=== PATIENT | male | born 1945 | race Hispanic/Latino ===

== ENCOUNTER 2020-12-04 13:12 | Inpatient (IN) | payer MEDICARE, OTHER ==
[2020-12-04] VITALS (10 sets, daily range): BP systolic 86–122; BP diastolic 37–105
[~2020-12-04] VITALS: Ht 167.6 cm; Wt 69.4 kg
[2020-12-04] MEDS ORDERED: 0.9%NACL 1000ML 1,000 ML IV ONE (13:31)
[2020-12-04 13:51] LABS: BASOPHILS % (AUTO) 0.7 % (0.0-5.0); EOSINOPHILS % (AUTO) 1.6 % (0.0-8.0); HEMATOCRIT 38.9 % (42-54); LYMPHOCYTES % (AUTO) 13.6 % (21.0-51.0); MEAN CORPUSCULAR HEMOGLOBIN 30.5 pg (27.0-33.0); MEAN CORPUSCULAR HGB CONC 33.7 g/dL (32.0-36.0); MEAN CORPUSCULAR VOLUME 90.7 fL (79-99); MONOCYTES % (AUTO) 7.7 % (3.0-13.0); NEUTROPHILS % (AUTO) 75.6 % (40.0-77.0); PLATELET COUNT (AUTO) 440 K/uL (130-400); RED BLOOD CELL COUNT(AUTO) 4.29 MIL/uL (4.50-6.20); RED CELL DISTRIBUTION WIDTH 14.1 % (11.0-15.5); WHITE BLOOD COUNT (AUTO) 12.1 K/uL (4.8-10.8)
[2020-12-04 13:59] LABS: AMMONIA < 3 umol/L (11-32)
[2020-12-04 14:09] LABS: INR 1.24 (0.85-1.15); PROTHROMBIN TIME 13.3 SEC (9.6-11.6)
[2020-12-04 14:10] LABS: PARTIAL THROMBOPLASTIN TIME 28.3 SEC (26.3-35.5)
[2020-12-04 14:13] LABS: APPEARANCE,URINE Cloudy (CLEAR); BILIRUBIN,URINE Negative (NEGATIVE); COLOR,URINE Yellow (YELLOW); GLUCOSE, URINE (UA) Negative (NEGATIVE); KETONES,URINE Negative (NEGATIVE); LEUKOCYTE ESTERASE ,URINE Trace (NEGATIVE); NITRATE,URINE Negative (NEGATIVE); OCCULT BLOOD,URINE Moderate (NEGATIVE); PROTEIN,URINE Negative (NEGATIVE); UROBILINOGEN,URINE 0.2 mg/dL (0.2-1.0)
[2020-12-04] MEDS ORDERED: DIAZEPAM 5 MG/ML 2 ML SYG ONE (14:16)
[2020-12-04] MEDS ORDERED: LACTATED RINGERS 1000ML 1,000 ML IV ONE (14:16)
[2020-12-04 14:22] LABS: ALANINE AMINOTRANSFERASE 81 U/L (12-78); ALBUMIN 2.2 g/dL (3.5-5.0); ASPARTATE AMINOTRANSFERASE 138 U/L (10-37); CARBON DIOXIDE 21 mmol/L (21-32); CHLORIDE 106 mmol/L (101-111); CREATININE 1.6 mg/dL (0.5-1.5); GLOMERULAR FILTR. RATE CALC 45 mL/min (>60); GLUCOSE,RANDOM 129 mg/dL (70-105); LIPASE 480 U/L (114-286); POTASSIUM 3.3 mmol/L (3.5-5.1); SODIUM SERUM 142 mmol/L (136-145); TOTAL PROTEIN, SERUM 6.7 g/dL (6.0-8.3); UREA NITROGEN, BLOOD 58 mg/dL (7-18)
[2020-12-04 14:25] LABS: CREATINE KINASE, TOTAL 2346 U/L (21-232)
[2020-12-04 14:28] LABS: B-TYPE NATRIURETIC PEPTIDE 785 pg/mL (0-100)
[2020-12-04 14:30] LABS: BACTERIA,URINE Few /HPF (None Seen); MUCUS,URINE Few LPF (None Seen); SQUAMOUS EPITHELIAL CELL,UR Many /HPF (0-2)
[2020-12-04 14:31] LABS: TRANSITIONAL EPI CELLS,URINE Few /HPF (None Seen)
[2020-12-04] MEDS ORDERED: ASPIRIN 81MG CHEW TAB ONE (14:51)
[2020-12-04 14:53] LABS: AMPHET/METH SCREEN,URINE NEGATIVE (NEGATIVE); BARBITURATE SCREEN, URINE NEGATIVE (NEGATIVE); BENZODIAZEPINES SCREEN,URINE NEGATIVE (NEGATIVE); CANNABINOID SCREEN,URINE NEGATIVE (NEGATIVE); COCAINE SCREEN,URINE NEGATIVE (NEGATIVE); OPIATE SCREEN,URINE NEGATIVE (NEGATIVE); PHENCYCLIDINE SCREEN,URINE NEGATIVE (NEGATIVE)
[2020-12-04 15:01] LABS: ACETAMINOPHEN < 1 mcg/mL (10-29); SALICYLATE < 2.8 mg/dL (2.8-20.0)
[2020-12-04] MEDS ORDERED: M.V.I. IV [ADULT] 10 ML, THIAMINE HCL 100 MG, FOLIC ACID 1 MG in 0.9%NACL 1000ML 1,000 ML IV SCH (15:30)
[2020-12-04] MEDS: 0.9%NACL 1000ML 1,000 ML IV SCH (16:30)
[2020-12-04] MEDS ORDERED: ONDANSETRON 4MG INJ IVP PRN (16:30)
[2020-12-04] MEDS ORDERED: VANCOMYCIN PROTOCOL PER PHARMACY IV SCH (16:30)
[2020-12-04] MEDS ORDERED: DEXTROSE 50%-WATER 50 ML DISP.SYRIN IV PRN (16:45)
[2020-12-04] MEDS ORDERED: GLUCAGON 1MG KIT 1 MG ML IM PRN (16:45)
[2020-12-04] MEDS ORDERED: LIDOCAINE HCL-MPF 1% 2ML VIAL IV PRN ×2 (16:45)
[2020-12-04] MEDS ORDERED: NOREPINEPHRIN 4MG/NS 250ML 250 ML IV SCH (17:15)
[2020-12-04] MEDS ORDERED: ZOSYN 3.375GM+NS 50ML 50 ML IV ONE (17:40)
[2020-12-04 18:17] LABS: CRP QUANTITATIVE 137.9 mg/L (0.00-9.0)
[2020-12-04] MEDS ORDERED: HEPARIN 25,000 UNITS/250ML D5W 250 ML IV ONE (20:35)
[2020-12-04] MEDS: PANTOPRAZOLE 40 MG TAB DR PO SCH (21:00)
[2020-12-04] MEDS: ZOSYN 3.375GM+NS 50ML 50 ML IV SCH (21:00)
[2020-12-04] MEDS: VANCOMYCIN 1G/250ML KIT 250 ML IV SCH (22:20)
[2020-12-05] VITALS (29 sets, daily range): BP systolic 87–150; BP diastolic 45–95
[2020-12-05] MEDS: ZOSYN 3.375GM+NS 50ML 50 ML IV SCH ×4 (00:23→23:46)
[2020-12-05] MEDS: 0.9%NACL 1000ML 1,000 ML IV SCH ×3 (03:18→21:51)
[2020-12-05 03:45] LABS: HEMATOCRIT 34.2 % (42-54); MEAN CORPUSCULAR HEMOGLOBIN 29.6 pg (27.0-33.0); MEAN CORPUSCULAR HGB CONC 32.7 g/dL (32.0-36.0); MEAN CORPUSCULAR VOLUME 90.2 fL (79-99); RED BLOOD CELL COUNT(AUTO) 3.79 MIL/uL (4.50-6.20); RED CELL DISTRIBUTION WIDTH 14.2 % (11.0-15.5); WHITE BLOOD COUNT (AUTO) 9.2 K/uL (4.8-10.8)
[2020-12-05 04:00] LABS: INR 1.37 (0.85-1.15); PROTHROMBIN TIME 14.5 SEC (9.6-11.6)
[2020-12-05 04:01] LABS: PARTIAL THROMBOPLASTIN TIME 87.1 SEC (26.3-35.5)
[2020-12-05 04:31] LABS: ALBUMIN 1.7 g/dL (3.5-5.0); BILIRUBIN,DIRECT 0.6 mg/dL (0.0-0.3); BILIRUBIN,TOTAL 1.7 mg/dL (0.2-1.0); CREATININE 1.1 mg/dL (0.5-1.5); MAGNESIUM 2.6 mg/dL (1.80-2.40); TOTAL PROTEIN, SERUM 5.4 g/dL (6.0-8.3)
[2020-12-05 04:35] LABS: POTASSIUM 2.7 mmol/L (3.5-5.1)
[2020-12-05] MEDS: POTASSIUM CHLORIDE 10MEQ/100ML 100 ML IV PRN ×2 (04:40→07:07)
[2020-12-05] MEDS: POTASSIUM CHLORIDE 20MEQ/100ML 100 ML IV PRN (05:47)
[2020-12-05] MEDS: PANTOPRAZOLE 40 MG TAB DR PO SCH (08:49)
[2020-12-05 09:45] LABS: INR 1.38 (0.85-1.15); PROTHROMBIN TIME 14.6 SEC (9.6-11.6)
[2020-12-05 13:55] LABS: INR 1.4 (0.85-1.15); PROTHROMBIN TIME 14.8 SEC (9.6-11.6)
[2020-12-05 13:56] LABS: PARTIAL THROMBOPLASTIN TIME 71.9 SEC (26.3-35.5)
[2020-12-05] MEDS ORDERED: AMIODARONE 900MG VIAL 900 MG in DEXTROSE 5%-WATER 500 ML IV SCH (14:45)
[2020-12-05] MEDS ORDERED: AMIODARONE 900MG VIAL 150 MG in DEXTROSE 5%-WATER 100 ML IV SCH (15:00)
[2020-12-05 15:30] LABS: CREATININE 1.1 mg/dL (0.5-1.5); POTASSIUM 3.2 mmol/L (3.5-5.1)
[2020-12-05] MEDS: VANCOMYCIN 1G/250ML KIT 250 ML IV SCH (17:08)
[2020-12-05 17:31] LABS: ABG BASE EXCESS -6.2 mmol/L (-2.0-3.0); ABG HCO3 14.7 mmol/L (21.0-28.0); ABG OXYGEN SATURATION 97.4 % (95.0-99.0); ABG PCO2 20 mmHg (35-48)
[2020-12-05] MEDS ORDERED: ALBUMIN (HUMAN) 25% 50 ML IV SCH (17:45)
[2020-12-05] MEDS ORDERED: PHARMACY COMMUNICATION MISC SCH (18:30)
[2020-12-05 19:58] LABS: INR 1.39 (0.85-1.15); PROTHROMBIN TIME 14.7 SEC (9.6-11.6)
[2020-12-05 19:59] LABS: PARTIAL THROMBOPLASTIN TIME 42.9 SEC (26.3-35.5)
[2020-12-05 20:21] LABS: CREATININE 1.1 mg/dL (0.5-1.5); POTASSIUM 3.3 mmol/L (3.5-5.1)
[2020-12-06] VITALS (42 sets, daily range): BP systolic 71–158; BP diastolic 31–93
[2020-12-06 03:53] LABS: HEMATOCRIT 35.8 % (42-54); MEAN CORPUSCULAR HEMOGLOBIN 30.7 pg (27.0-33.0); MEAN CORPUSCULAR HGB CONC 32.7 g/dL (32.0-36.0); RED BLOOD CELL COUNT(AUTO) 3.81 MIL/uL (4.50-6.20); RED CELL DISTRIBUTION WIDTH 14.7 % (11.0-15.5); WHITE BLOOD COUNT (AUTO) 10.4 K/uL (4.8-10.8)
[2020-12-06 04:05] LABS: INR 1.44 (0.85-1.15); PROTHROMBIN TIME 15.2 SEC (9.6-11.6)
[2020-12-06 04:07] LABS: CREATININE 1.2 mg/dL (0.5-1.5); MAGNESIUM 1.5 mg/dL (1.80-2.40); PARTIAL THROMBOPLASTIN TIME 40.7 SEC (26.3-35.5); POTASSIUM 3.3 mmol/L (3.5-5.1)
[2020-12-06] MEDS: MAGNESIUM 2GM PREMIX 50ML 50 ML IV PRN (05:39)
[2020-12-06] MEDS: POTASSIUM CHLORIDE 20MEQ/100ML 100 ML IV PRN (05:40)
[2020-12-06] MEDS: 0.9%NACL 1000ML 1,000 ML IV SCH (07:35)
[2020-12-06] MEDS ORDERED: ALBUMIN (HUMAN) 25% 100 ML IV ONE (09:05)
[2020-12-06] MEDS: ZOSYN 3.375GM+NS 50ML 50 ML IV SCH ×2 (09:08→17:29)
[2020-12-06] MEDS: PANTOPRAZOLE 40 MG TAB DR PO SCH (09:08)
[2020-12-06] MEDS ORDERED: LISI1TAB53 PO (09:34)
[2020-12-06] MEDS ORDERED: LORA10TA7 PO (09:34)
[2020-12-06] MEDS ORDERED: MEGE400O5 PO (09:34)
[2020-12-06] MEDS ORDERED: CLOT30SO2 TP (09:34)
[2020-12-06] MEDS ORDERED: LEVO500T90 PO (09:34)
[2020-12-06] MEDS ORDERED: ERGO500093 PO (09:34)
[2020-12-06 09:38] LABS: HEMATOCRIT 37.2 % (42-54); MEAN CORPUSCULAR HEMOGLOBIN 29.9 pg (27.0-33.0); MEAN CORPUSCULAR HGB CONC 31.7 g/dL (32.0-36.0); MEAN CORPUSCULAR VOLUME 94.2 fL (79-99); PLATELET COUNT (AUTO) 314 K/uL (130-400); RED BLOOD CELL COUNT(AUTO) 3.95 MIL/uL (4.50-6.20); RED CELL DISTRIBUTION WIDTH 14.6 % (11.0-15.5); WHITE BLOOD COUNT (AUTO) 12.1 K/uL (4.8-10.8)
[2020-12-06 09:47] LABS: INR 1.48 (0.85-1.15); PROTHROMBIN TIME 15.6 SEC (9.6-11.6)
[2020-12-06 10:03] LABS: LYMPHOCYTES % (MANUAL) 18 % (22-44); MAN.DIFF COMMENT-IMPRESSION MANUAL DIFFERENTIAL; MONOCYTES % (MANUAL) 4 % (2-9); POTASSIUM 3.6 mmol/L (3.5-5.1); SEGMENTED NEUTROPHILS % 78 % (40-70)
[2020-12-06 10:04] LABS: CREATININE 1.3 mg/dL (0.5-1.5); PLATELET MORPHOLOGY COMMENT ADEQUATE
[2020-12-06] MEDS ORDERED: LORAZEPAM 2 MG/ML 1 ML VIAL ONE (12:28)
[2020-12-06] MEDS: METOPROLOL TARTRATE 25 MG TAB PO SCH ×3 (12:52→21:00)
[2020-12-06] MEDS ORDERED: LACTATED RINGERS 1000ML 1,000 ML IV SCH (15:45)
[2020-12-06 16:07] LABS: INR 1.74 (0.85-1.15)
[2020-12-06 16:08] LABS: PARTIAL THROMBOPLASTIN TIME 62.8 SEC (26.3-35.5)
[2020-12-06] MEDS ORDERED: FUROSEMIDE 40MG VIAL ONE (16:21)
[2020-12-06] MEDS ORDERED: FUROSEMIDE 20MG VIAL IV SCH (16:30)
[2020-12-06 16:39] LABS: ABG BASE EXCESS -14.8 mmol/L (-2.0-3.0); ABG HCO3 6.4 mmol/L (21.0-28.0); ABG OXYGEN SATURATION 99.1 % (95.0-99.0); ABG PCO2 < 15 mmHg (35-48)
[2020-12-06] MEDS ORDERED: SODIUM BICARB 50MEQ 50ML VIAL IV SCH ×2 (16:45→17:15)
[2020-12-06] MEDS: BALSAM PERU/CASTOR OIL 60 GM TUBE TP SCH (17:28)
[2020-12-06] MEDS: VANCOMYCIN 1G/250ML KIT 250 ML IV SCH (17:29)
[2020-12-06 17:41] LABS: CREATININE 1.5 mg/dL (0.5-1.5); MAGNESIUM 2.1 mg/dL (1.80-2.40); PHOSPHORUS 4.3 mg/dL (2.5-4.9); POTASSIUM 3.9 mmol/L (3.5-5.1)
[2020-12-06] MEDS: SODIUM BICARB 8.4% 50ML SYRING 150 MEQ in DEXTROSE 5%-WATER 1,000 ML IVP SCH (18:02)
[2020-12-07] VITALS (34 sets, daily range): BP systolic 89–180; BP diastolic 32–110
[2020-12-07] MEDS: ZOSYN 3.375GM+NS 50ML 50 ML IV SCH ×4 (00:29→23:59)
[2020-12-07 03:51] LABS: HEMATOCRIT 31.8 % (42-54); MEAN CORPUSCULAR HGB CONC 33.3 g/dL (32.0-36.0); NUCLEATED RED BLOOD CELLS 0.1 % (0.0-0.19); RED BLOOD CELL COUNT(AUTO) 3.42 MIL/uL (4.50-6.20); RED CELL DISTRIBUTION WIDTH 14.7 % (11.0-15.5); WHITE BLOOD COUNT (AUTO) 14.3 K/uL (4.8-10.8)
[2020-12-07 04:09] LABS: INR 2.38 (0.85-1.15)
[2020-12-07 04:10] LABS: PARTIAL THROMBOPLASTIN TIME 51.7 SEC (26.3-35.5)
[2020-12-07] MEDS ORDERED: 0.9% NACL 250ML 250 ML IV ONE (04:31)
[2020-12-07 04:35] LABS: CREATININE 1.7 mg/dL (0.5-1.5); MAGNESIUM 1.8 mg/dL (1.80-2.40); PHOSPHORUS 3.3 mg/dL (2.5-4.9)
[2020-12-07] MEDS: SODIUM BICARB 8.4% 50ML SYRING 150 MEQ in DEXTROSE 5%-WATER 1,000 ML IVP SCH ×2 (04:38→19:45)
[2020-12-07 04:39] LABS: POTASSIUM 2.9 mmol/L (3.5-5.1)
[2020-12-07] MEDS ORDERED: 0.9% NACL 500ML IV.SOLN 250 ML IV ONE (04:45)
[2020-12-07] MEDS: MAGNESIUM 2GM PREMIX 50ML 50 ML IV PRN (06:00)
[2020-12-07] MEDS: POTASSIUM CHLORIDE 20MEQ/100ML 100 ML IV PRN (06:13)
[2020-12-07] MEDS: BALSAM PERU/CASTOR OIL 60 GM TUBE TP SCH (09:00)
[2020-12-07] MEDS: PANTOPRAZOLE 40 MG TAB DR PO SCH (11:18)
[2020-12-07] MEDS: METOPROLOL TARTRATE 25 MG TAB PO SCH (11:19)
[2020-12-07] MEDS: VANCOMYCIN 1G/250ML KIT 250 ML IV SCH (16:57)
[2020-12-07] MEDS: HEPARIN 25,000 UNITS/250ML D5W 250 ML IV SCH (16:59)
[2020-12-07] MEDS ORDERED: PHARMACY COMMUNICATION MISC SCH (17:15)
[2020-12-07] MEDS: DEXTROSE 5%-WATER 1,000 ML IV SCH ×2 (19:45→20:27)
[2020-12-07] MEDS: SODIUM BICARBONATE 650 MG TAB PO SCH ×2 (19:45→20:32)
[2020-12-07] MEDS: METOPROLOL TARTRATE 50 MG TAB PO SCH (20:31)
[2020-12-08] VITALS (32 sets, daily range): BP systolic 86–159; BP diastolic 43–120
[2020-12-08] MEDS: SODIUM BICARB 8.4% 50ML SYRING 150 MEQ in DEXTROSE 5%-WATER 1,000 ML IVP SCH (03:32)
[2020-12-08 03:46] LABS: BASOPHILS % (AUTO) 0.4 % (0.0-5.0); EOSINOPHILS % (AUTO) 0.8 % (0.0-8.0); HEMATOCRIT 36.1 % (42-54); LYMPHOCYTES % (AUTO) 19.8 % (21.0-51.0); MEAN CORPUSCULAR HEMOGLOBIN 29.5 pg (27.0-33.0); MEAN CORPUSCULAR HGB CONC 32.1 g/dL (32.0-36.0); MEAN CORPUSCULAR VOLUME 91.9 fL (79-99); MONOCYTES % (AUTO) 5.4 % (3.0-13.0); NEUTROPHILS % (AUTO) 71.6 % (40.0-77.0); PLATELET COUNT (AUTO) 254 K/uL (130-400); RED BLOOD CELL COUNT(AUTO) 3.93 MIL/uL (4.50-6.20); RED CELL DISTRIBUTION WIDTH 14.6 % (11.0-15.5); WHITE BLOOD COUNT (AUTO) 13.7 K/uL (4.8-10.8)
[2020-12-08 03:59] LABS: INR 2.33 (0.85-1.15); PROTHROMBIN TIME 23.5 SEC (9.6-11.6)
[2020-12-08 04:01] LABS: PARTIAL THROMBOPLASTIN TIME 80.3 SEC (26.3-35.5)
[2020-12-08 04:21] LABS: ALBUMIN 1.7 g/dL (3.5-5.0); BILIRUBIN,TOTAL 2.2 mg/dL (0.2-1.0); CREATININE 1.4 mg/dL (0.5-1.5); TOTAL PROTEIN, SERUM 4.9 g/dL (6.0-8.3)
[2020-12-08 04:34] LABS: POTASSIUM 2.3 mmol/L (3.5-5.1)
[2020-12-08] MEDS: POTASSIUM CHLORIDE 20MEQ/100ML 100 ML IV PRN ×3 (04:41→21:57)
[2020-12-08] MEDS: POTASSIUM CHLORIDE 10% ELIXIR 20 MEQ/15 ML UDCUP PO PRN (04:41)
[2020-12-08] MEDS: DEXTROSE 5%-WATER 1,000 ML IV SCH (06:24)
[2020-12-08] MEDS: POTASSIUM CHLORIDE 10MEQ/100ML 100 ML IV PRN (07:44)
[2020-12-08] MEDS: ZOSYN 3.375GM+NS 50ML 50 ML IV SCH ×2 (07:44→16:10)
[2020-12-08] MEDS: PANTOPRAZOLE 40 MG TAB DR PO SCH (07:44)
[2020-12-08] MEDS: METOPROLOL TARTRATE 50 MG TAB PO SCH ×3 (07:55→20:24)
[2020-12-08] MEDS: SODIUM BICARBONATE 650 MG TAB PO SCH (07:55)
[2020-12-08 12:10] LABS: INR 2.23 (0.85-1.15); PROTHROMBIN TIME 22.6 SEC (9.6-11.6)
[2020-12-08 12:11] LABS: PARTIAL THROMBOPLASTIN TIME 57.6 SEC (26.3-35.5)
[2020-12-08] MEDS: VANCOMYCIN 1G/250ML KIT 250 ML IV SCH ×2 (16:08→16:10)
[2020-12-08] MEDS: METOPROLOL TARTRATE 1 MG/ML 5ML VIAL IV PRN (16:08)
[2020-12-08] MEDS: BALSAM PERU/CASTOR OIL 60 GM TUBE TP SCH (16:10)
[2020-12-08] MEDS ORDERED: ALBUMIN (HUMAN) 25% 50 ML IV SCH (17:45)
[2020-12-08 18:27] LABS: INR 2.06 (0.85-1.15)
[2020-12-08 18:28] LABS: PARTIAL THROMBOPLASTIN TIME 62.1 SEC (26.3-35.5)
[2020-12-08] MEDS ORDERED: LORAZEPAM 4 MG SEVERE IVP PRN (18:30)
[2020-12-08] MEDS ORDERED: CHLORDIAZEPOXIDE 50MG SEVERE PO PRN (18:30)
[2020-12-08] MEDS ORDERED: LORAZEPAM 2 MG MODERATE IVP PRN (18:30)
[2020-12-08] MEDS ORDERED: CHLORDIAZEPOXIDE HCL 25 MG CAP MODERATE PO PRN (18:30)
[2020-12-08] MEDS: MAGNESIUM 2GM PREMIX 50ML 50 ML IV PRN (20:25)
[2020-12-09] VITALS (21 sets, daily range): BP systolic 82–126; BP diastolic 31–100
[2020-12-09] MEDS: ZOSYN 3.375GM+NS 50ML 50 ML IV SCH ×3 (00:20→18:33)
[2020-12-09 03:37] LABS: HEMATOCRIT 35.3 % (42-54); MEAN CORPUSCULAR HEMOGLOBIN 30.4 pg (27.0-33.0); MEAN CORPUSCULAR HGB CONC 32.9 g/dL (32.0-36.0); MEAN CORPUSCULAR VOLUME 92.4 fL (79-99); NUCLEATED RED BLOOD CELLS 1.2 % (0.0-0.19); RED BLOOD CELL COUNT(AUTO) 3.82 MIL/uL (4.50-6.20); RED CELL DISTRIBUTION WIDTH 14.8 % (11.0-15.5); WHITE BLOOD COUNT (AUTO) 13.8 K/uL (4.8-10.8)
[2020-12-09 03:46] LABS: MAGNESIUM 2.2 mg/dL (1.80-2.40)
[2020-12-09 03:53] LABS: POTASSIUM 2.9 mmol/L (3.5-5.1)
[2020-12-09 03:57] LABS: INR 1.8 (0.85-1.15); PROTHROMBIN TIME 18.6 SEC (9.6-11.6)
[2020-12-09 03:58] LABS: PARTIAL THROMBOPLASTIN TIME 60.9 SEC (26.3-35.5)
[2020-12-09] MEDS: POTASSIUM CHLORIDE 10MEQ/100ML 100 ML IV PRN ×2 (05:42→21:37)
[2020-12-09] MEDS: KCL 20 MEQ ERTAB PO PRN ×2 (05:43→21:37)
[2020-12-09] MEDS ORDERED: PHENYLEPHRINE HCL 100 MG in 0.9% NACL 250ML 250 ML IV SCH (09:45)
[2020-12-09 09:58] LABS: HEMATOCRIT 36.7 % (42-54); MEAN CORPUSCULAR HEMOGLOBIN 30.7 pg (27.0-33.0); MEAN CORPUSCULAR HGB CONC 32.4 g/dL (32.0-36.0); MEAN CORPUSCULAR VOLUME 94.6 fL (79-99); NUCLEATED RED BLOOD CELLS 1.1 % (0.0-0.19); RED BLOOD CELL COUNT(AUTO) 3.88 MIL/uL (4.50-6.20); WHITE BLOOD COUNT (AUTO) 15.7 K/uL (4.8-10.8)
[2020-12-09] MEDS: FOLIC ACID 1 MG TABLET PO SCH (10:20)
[2020-12-09] MEDS: THIAMINE HCL 100 MG/ML 2ML VIAL IM SCH (10:20)
[2020-12-09] MEDS: PANTOPRAZOLE 40 MG TAB DR PO SCH (10:20)
[2020-12-09] MEDS: MULTIVITAMIN TABLET PO SCH (10:21)
[2020-12-09] MEDS: BALSAM PERU/CASTOR OIL 60 GM TUBE TP SCH (10:25)
[2020-12-09] MEDS: METOPROLOL TARTRATE 50 MG TAB PO SCH ×3 (10:25→20:57)
[2020-12-09] MEDS: DEXTROSE 5%-WATER 1,000 ML IV SCH ×2 (10:27→20:50)
[2020-12-09] MEDS: VANCOMYCIN 1G/250ML KIT 250 ML IV SCH (18:33)
[2020-12-09] MEDS: HEPARIN 25,000 UNITS/250ML D5W 250 ML IV SCH (18:34)
[2020-12-09] MEDS ORDERED: AMIODARONE 150MG VIAL 150 MG in DEXTROSE 5%-WATER 100 ML IV SCH (20:00)
[2020-12-09] MEDS ORDERED: AMIODARONE 900MG VIAL 450 MG in DEXTROSE 5%-WATER 250 ML IV SCH (20:00)
[2020-12-09 20:34] LABS: ABG BASE EXCESS 1.1 mmol/L (-2.0-3.0); ABG OXYGEN SATURATION 96.6 % (95.0-99.0); ABG PCO2 26 mmHg (35-48)
[2020-12-09 21:21] LABS: POTASSIUM 3.2 mmol/L (3.5-5.1)
[2020-12-10] VITALS (26 sets, daily range): BP systolic 85–165; BP diastolic 36–119
[2020-12-10] MEDS ORDERED: PHENYLEPHRINE HCL 10 MG/ML 1ML VIAL IV ONE (00:06)
[2020-12-10] MEDS ORDERED: 0.9% NACL 250ML 250 ML IV ONE (00:06)
[2020-12-10] MEDS ORDERED: PHENYLEPHRINE HCL 50 MG in 0.9% NACL 250ML 250 ML IV PRN (00:15)
[2020-12-10] MEDS: ZOSYN 3.375GM+NS 50ML 50 ML IV SCH ×3 (01:21→16:54)
[2020-12-10] MEDS: POTASSIUM CHLORIDE 20MEQ/100ML 100 ML IV PRN (01:21)
[2020-12-10 05:14] LABS: HEMATOCRIT 36.6 % (42-54); MEAN CORPUSCULAR HEMOGLOBIN 29.9 pg (27.0-33.0); MEAN CORPUSCULAR HGB CONC 30.9 g/dL (32.0-36.0); MEAN CORPUSCULAR VOLUME 96.8 fL (79-99); NUCLEATED RED BLOOD CELLS 3.1 % (0.0-0.19); RED BLOOD CELL COUNT(AUTO) 3.78 MIL/uL (4.50-6.20); RED CELL DISTRIBUTION WIDTH 15.1 % (11.0-15.5); WHITE BLOOD COUNT (AUTO) 15.1 K/uL (4.8-10.8)
[2020-12-10] MEDS: DEXTROSE 5%-WATER 1,000 ML IV SCH ×3 (05:30→16:55)
[2020-12-10 05:33] LABS: CREATININE 1.4 mg/dL (0.5-1.5); POTASSIUM 4.5 mmol/L (3.5-5.1)
[2020-12-10 05:38] LABS: INR 1.96 (0.85-1.15); PROTHROMBIN TIME 20.1 SEC (9.6-11.6)
[2020-12-10 05:39] LABS: PARTIAL THROMBOPLASTIN TIME 48.7 SEC (26.3-35.5)
[2020-12-10] MEDS ORDERED: FUROSEMIDE 40MG VIAL IV SCH ×2 (07:45→08:00)
[2020-12-10] MEDS: METOPROLOL TARTRATE 50 MG TAB PO SCH ×3 (08:39→20:21)
[2020-12-10] MEDS: THIAMINE HCL 100 MG/ML 2ML VIAL IM SCH (08:39)
[2020-12-10] MEDS: MULTIVITAMIN TABLET PO SCH (08:39)
[2020-12-10] MEDS: PREDNISONE 20 MG TABLET PO SCH (08:39)
[2020-12-10] MEDS: FOLIC ACID 1 MG TABLET PO SCH (08:39)
[2020-12-10] MEDS: PANTOPRAZOLE 40 MG TAB DR PO SCH (08:40)
[2020-12-10] MEDS: BALSAM PERU/CASTOR OIL 60 GM TUBE TP SCH (08:40)
[2020-12-10] MEDS ORDERED: AMIODARONE 150MG VIAL 150 MG in DEXTROSE 5%-WATER 100 ML IV NR (10:29)
[2020-12-10] MEDS: IPRATROPIUM 0.5 MG/2.5 ML INH IH SCH (12:59)
[2020-12-10 13:34] LABS: ABG HCO3 10.2 mmol/L (21.0-28.0); ABG OXYGEN SATURATION 97.2 % (95.0-99.0); ABG PCO2 16 mmHg (35-48)
[2020-12-10] MEDS ORDERED: SODIUM BICARBONATE 650 MG TAB ONE (13:56)
[2020-12-10] MEDS ORDERED: SODIUM BICARB 50MEQ 50ML VIAL 100 ML ONE (13:56)
[2020-12-10] MEDS: SODIUM BICARBONATE 650 MG TAB PO SCH ×2 (14:58→20:22)
[2020-12-10] MEDS ORDERED: SODIUM BICARB 50MEQ 50ML VIAL IV SCH (15:25)
[2020-12-10] MEDS: VANCOMYCIN 1G/250ML KIT 250 ML IV SCH (16:54)
[2020-12-10 18:15] LABS: ABG BASE EXCESS -9.2 mmol/L (-2.0-3.0); ABG HCO3 12.3 mmol/L (21.0-28.0); ABG OXYGEN SATURATION 94.2 % (95.0-99.0); ABG PCO2 19 mmHg (35-48)
[2020-12-10] MEDS ORDERED: SODIUM BICARB 50MEQ 50ML VIAL IV STA (18:32)
[2020-12-10] MEDS: SODIUM BICARB 8.4% 50ML SYRING 150 MEQ in DEXTROSE 5%-WATER 850 ML IVP SCH (19:01)
[2020-12-11] VITALS (27 sets, daily range): BP systolic 88–137; BP diastolic 44–100
[2020-12-11] MEDS: ZOSYN 3.375GM+NS 50ML 50 ML IV SCH ×3 (00:03→20:23)
[2020-12-11] MEDS: SODIUM BICARB 8.4% 50ML SYRING 150 MEQ in DEXTROSE 5%-WATER 850 ML IVP SCH (00:59)
[2020-12-11] MEDS: DEXTROSE 5%-WATER 1,000 ML IV SCH ×3 (01:00→19:42)
[2020-12-11 04:01] LABS: BASOPHILS % (AUTO) 0.2 % (0.0-5.0); HEMATOCRIT 33.9 % (42-54); LYMPHOCYTES % (AUTO) 12.1 % (21.0-51.0); MEAN CORPUSCULAR HEMOGLOBIN 30.7 pg (27.0-33.0); MEAN CORPUSCULAR VOLUME 92.9 fL (79-99); MONOCYTES % (AUTO) 4.5 % (3.0-13.0); NEUTROPHILS % (AUTO) 82.4 % (40.0-77.0); PLATELET COUNT (AUTO) 163 K/uL (130-400); RED BLOOD CELL COUNT(AUTO) 3.65 MIL/uL (4.50-6.20); RED CELL DISTRIBUTION WIDTH 15.2 % (11.0-15.5); WHITE BLOOD COUNT (AUTO) 16.6 K/uL (4.8-10.8)
[2020-12-11 04:09] LABS: POTASSIUM 3.4 mmol/L (3.5-5.1)
[2020-12-11 04:12] LABS: INR 2.48 (0.85-1.15); PROTHROMBIN TIME 24.9 SEC (9.6-11.6)
[2020-12-11 04:13] LABS: ABG BASE EXCESS -0.3 mmol/L (-2.0-3.0); ABG HCO3 21.1 mmol/L (21.0-28.0); ABG OXYGEN SATURATION 78.6 % (95.0-99.0); ABG PCO2 27 mmHg (35-48)
[2020-12-11 04:34] LABS: PARTIAL THROMBOPLASTIN TIME > 139.0 SEC (26.3-35.5)
[2020-12-11] MEDS: POTASSIUM CHLORIDE 20MEQ/100ML 100 ML IV PRN (06:16)
[2020-12-11] MEDS: IPRATROPIUM 0.5 MG/2.5 ML INH IH SCH ×6 (06:33→18:10)
[2020-12-11] MEDS: MULTIVITAMIN TABLET PO SCH (09:02)
[2020-12-11] MEDS: FOLIC ACID 1 MG TABLET PO SCH (09:02)
[2020-12-11] MEDS: PANTOPRAZOLE 40 MG TAB DR PO SCH (09:03)
[2020-12-11] MEDS: METOPROLOL TARTRATE 50 MG TAB PO SCH ×3 (09:03→21:35)
[2020-12-11] MEDS: SODIUM BICARBONATE 650 MG TAB PO SCH ×2 (09:04→20:05)
[2020-12-11] MEDS: THIAMINE HCL 100 MG/ML 2ML VIAL IM SCH (09:04)
[2020-12-11] MEDS: BALSAM PERU/CASTOR OIL 60 GM TUBE TP SCH (09:08)
[2020-12-11] MEDS: PREDNISONE 20 MG TABLET PO SCH (09:17)
[2020-12-11] MEDS: FUROSEMIDE 20MG VIAL IV SCH ×2 (09:18→20:05)
[2020-12-11] MEDS: KCL 20 MEQ ERTAB PO PRN (09:23)
[2020-12-11] MEDS ORDERED: PHARMACY COMMUNICATION MISC SCH (19:45)
[2020-12-12] VITALS (18 sets, daily range): BP systolic 88–137; BP diastolic 42–68
[2020-12-12] MEDS: IPRATROPIUM 0.5 MG/2.5 ML INH IH SCH ×4 (00:13→23:59)
[2020-12-12 01:40] LABS: HEMATOCRIT 36.7 % (42-54); MEAN CORPUSCULAR HEMOGLOBIN 30.5 pg (27.0-33.0); MEAN CORPUSCULAR HGB CONC 32.7 g/dL (32.0-36.0); MEAN CORPUSCULAR VOLUME 93.1 fL (79-99); NUCLEATED RED BLOOD CELLS 3.4 % (0.0-0.19); RED BLOOD CELL COUNT(AUTO) 3.94 MIL/uL (4.50-6.20); RED CELL DISTRIBUTION WIDTH 15.2 % (11.0-15.5); WHITE BLOOD COUNT (AUTO) 16.9 K/uL (4.8-10.8)
[2020-12-12 01:56] LABS: INR 2.05 (0.85-1.15); PROTHROMBIN TIME 20.9 SEC (9.6-11.6)
[2020-12-12 02:04] LABS: ALBUMIN 1.6 g/dL (3.5-5.0); BILIRUBIN,TOTAL 1.9 mg/dL (0.2-1.0); CREATININE 2.2 mg/dL (0.5-1.5); MAGNESIUM 1.8 mg/dL (1.80-2.40); PHOSPHORUS 3.1 mg/dL (2.5-4.9); POTASSIUM 3.2 mmol/L (3.5-5.1); TOTAL PROTEIN, SERUM 5.1 g/dL (6.0-8.3)
[2020-12-12] MEDS: MAGNESIUM 2GM PREMIX 50ML 50 ML IV PRN (02:13)
[2020-12-12] MEDS: POTASSIUM CHLORIDE 20MEQ/100ML 100 ML IV PRN ×4 (02:14→16:12)
[2020-12-12] MEDS: DEXTROSE 5%-WATER 1,000 ML IV SCH ×2 (07:30→16:13)
[2020-12-12 08:31] LABS: CREATININE 2.3 mg/dL (0.5-1.5); MAGNESIUM 2.6 mg/dL (1.80-2.40); POTASSIUM 3.4 mmol/L (3.5-5.1)
[2020-12-12] MEDS: SODIUM BICARBONATE 650 MG TAB PO SCH ×2 (08:31→20:36)
[2020-12-12] MEDS: MULTIVITAMIN TABLET PO SCH (08:31)
[2020-12-12] MEDS: PREDNISONE 20 MG TABLET PO SCH (08:31)
[2020-12-12] MEDS: PANTOPRAZOLE 40 MG TAB DR PO SCH (08:31)
[2020-12-12 08:32] LABS: INR 1.93 (0.85-1.15); PROTHROMBIN TIME 19.8 SEC (9.6-11.6)
[2020-12-12] MEDS: BALSAM PERU/CASTOR OIL 60 GM TUBE TP SCH (08:32)
[2020-12-12] MEDS: ZOSYN 3.375GM+NS 50ML 50 ML IV SCH ×2 (08:32→20:36)
[2020-12-12] MEDS: FUROSEMIDE 20MG VIAL IV SCH ×2 (08:32→19:57)
[2020-12-12 09:00] LABS: PARTIAL THROMBOPLASTIN TIME 124.5 SEC (26.3-35.5)
[2020-12-12] MEDS: METOPROLOL TARTRATE 50 MG TAB PO SCH ×3 (09:00→21:00)
[2020-12-12 15:02] LABS: INR 1.87 (0.85-1.15); PROTHROMBIN TIME 19.3 SEC (9.6-11.6)
[2020-12-12 15:03] LABS: PARTIAL THROMBOPLASTIN TIME 43.3 SEC (26.3-35.5)
[2020-12-12 22:47] LABS: CREATININE 2.4 mg/dL (0.5-1.5); POTASSIUM 3.8 mmol/L (3.5-5.1)
[2020-12-13] VITALS (13 sets, daily range): BP systolic 90–135; BP diastolic 43–84
[2020-12-13] MEDS: DEXTROSE 5%-WATER 1,000 ML IV SCH ×3 (03:34→23:34)
[2020-12-13 06:10] LABS: BASOPHILS % (AUTO) 0.1 % (0.0-5.0); EOSINOPHILS % (AUTO) 0.1 % (0.0-8.0); HEMATOCRIT 32.1 % (42-54); LYMPHOCYTES % (AUTO) 6.9 % (21.0-51.0); MEAN CORPUSCULAR HEMOGLOBIN 30.9 pg (27.0-33.0); MEAN CORPUSCULAR VOLUME 93.6 fL (79-99); NEUTROPHILS % (AUTO) 87.2 % (40.0-77.0); NUCLEATED RED BLOOD CELLS 1.3 % (0.0-0.19); PLATELET COUNT (AUTO) 92 K/uL (130-400); RED BLOOD CELL COUNT(AUTO) 3.43 MIL/uL (4.50-6.20); RED CELL DISTRIBUTION WIDTH 15.9 % (11.0-15.5); WHITE BLOOD COUNT (AUTO) 14.5 K/uL (4.8-10.8)
[2020-12-13 06:27] LABS: CREATININE 2.3 mg/dL (0.5-1.5)
[2020-12-13] MEDS: IPRATROPIUM 0.5 MG/2.5 ML INH IH SCH ×3 (06:38→18:37)
[2020-12-13] MEDS: POTASSIUM CHLORIDE 10% ELIXIR 20 MEQ/15 ML UDCUP PO PRN ×2 (07:05→22:51)
[2020-12-13] MEDS: FUROSEMIDE 20MG VIAL IV SCH ×2 (08:29→19:25)
[2020-12-13] MEDS: BALSAM PERU/CASTOR OIL 60 GM TUBE TP SCH (09:01)
[2020-12-13] MEDS: ZOSYN 3.375GM+NS 50ML 50 ML IV SCH ×2 (09:42→20:44)
[2020-12-13] MEDS: MULTIVITAMIN TABLET PO SCH (09:42)
[2020-12-13] MEDS: PANTOPRAZOLE 40 MG TAB DR PO SCH (09:42)
[2020-12-13] MEDS: SODIUM BICARBONATE 650 MG TAB PO SCH ×2 (09:42→20:47)
[2020-12-13] MEDS: METOPROLOL TARTRATE 50 MG TAB PO SCH ×3 (09:42→20:45)
[2020-12-13] MEDS: PREDNISONE 20 MG TABLET PO SCH (09:42)
[2020-12-13] MEDS: ASPIRIN 81MG CHEW TAB PO SCH (12:03)
[2020-12-13 13:36] LABS: HEMATOCRIT 30.6 % (42-54)
[2020-12-13 13:48] LABS: INR 1.81 (0.85-1.15); PROTHROMBIN TIME 18.7 SEC (9.6-11.6)
[2020-12-13 13:49] LABS: PARTIAL THROMBOPLASTIN TIME 43.9 SEC (26.3-35.5)
[2020-12-13 13:52] LABS: POTASSIUM 3.2 mmol/L (3.5-5.1)
[2020-12-13 22:25] LABS: INR 1.6 (0.85-1.15); PROTHROMBIN TIME 16.7 SEC (9.6-11.6)
[2020-12-13 22:26] LABS: ALBUMIN 1.7 g/dL (3.5-5.0); BILIRUBIN,TOTAL 1.4 mg/dL (0.2-1.0); CREATININE 1.8 mg/dL (0.5-1.5); TOTAL PROTEIN, SERUM 5.2 g/dL (6.0-8.3)
[2020-12-13 22:28] LABS: POTASSIUM 2.8 mmol/L (3.5-5.1)
[2020-12-13] MEDS: POTASSIUM CHLORIDE 10MEQ/100ML 100 ML IV PRN (22:42)
[2020-12-14] VITALS (9 sets, daily range): BP systolic 92–121; BP diastolic 57–78
[2020-12-14] MEDS: IPRATROPIUM 0.5 MG/2.5 ML INH IH SCH ×5 (00:44→23:11)
[2020-12-14] MEDS: POTASSIUM CHLORIDE 10MEQ/100ML 100 ML IV PRN (00:52)
[2020-12-14 04:21] LABS: HEMATOCRIT 33.8 % (42-54); MEAN CORPUSCULAR HEMOGLOBIN 30.7 pg (27.0-33.0); MEAN CORPUSCULAR HGB CONC 32.8 g/dL (32.0-36.0); MEAN CORPUSCULAR VOLUME 93.6 fL (79-99); NUCLEATED RED BLOOD CELLS 0.8 % (0.0-0.19); RED BLOOD CELL COUNT(AUTO) 3.61 MIL/uL (4.50-6.20); RED CELL DISTRIBUTION WIDTH 16.7 % (11.0-15.5); WHITE BLOOD COUNT (AUTO) 12.7 K/uL (4.8-10.8)
[2020-12-14 04:31] LABS: ALBUMIN 1.6 g/dL (3.5-5.0); BILIRUBIN,TOTAL 1.5 mg/dL (0.2-1.0); CREATININE 1.7 mg/dL (0.5-1.5); POTASSIUM 3.3 mmol/L (3.5-5.1); TOTAL PROTEIN, SERUM 4.9 g/dL (6.0-8.3)
[2020-12-14 06:08] LABS: ABG BASE EXCESS 0.5 mmol/L (-2.0-3.0); ABG HCO3 21.6 mmol/L (21.0-28.0); ABG OXYGEN SATURATION 96.1 % (95.0-99.0); ABG PCO2 27 mmHg (35-48)
[2020-12-14 09:09] LABS: ABG BASE EXCESS -1.3 mmol/L (-2.0-3.0); ABG OXYGEN SATURATION 54.9 % (95.0-99.0); ABG PCO2 33 mmHg (35-48)
[2020-12-14 09:14] LABS: ABG BASE EXCESS -2.9 mmol/L (-2.0-3.0); ABG OXYGEN SATURATION 96.6 % (95.0-99.0); ABG PCO2 27 mmHg (35-48)
[2020-12-14] MEDS: DEXTROSE 5%-WATER 1,000 ML IV SCH (09:52)
[2020-12-14] MEDS: BALSAM PERU/CASTOR OIL 60 GM TUBE TP SCH (09:52)
[2020-12-14] MEDS: ASPIRIN 81MG CHEW TAB PO SCH (10:45)
[2020-12-14] MEDS: PANTOPRAZOLE 40 MG TAB DR PO SCH (10:45)
[2020-12-14] MEDS: PREDNISONE 20 MG TABLET PO SCH (10:45)
[2020-12-14] MEDS: METOPROLOL TARTRATE 50 MG TAB PO SCH ×3 (10:45→21:42)
[2020-12-14] MEDS: APIXABAN 2.5 MG TABLET PO SCH ×2 (10:45→21:42)
[2020-12-14] MEDS: MULTIVITAMIN TABLET PO SCH (10:45)
[2020-12-14] MEDS: SODIUM BICARBONATE 650 MG TAB PO SCH ×2 (10:45→21:42)
[2020-12-14] MEDS: ZOSYN 3.375GM+NS 50ML 50 ML IV SCH ×2 (10:45→21:42)
[2020-12-15] VITALS (7 sets, daily range): BP systolic 108–124; BP diastolic 52–80
[2020-12-15] MEDS: DEXTROSE 5%-WATER 1,000 ML IV SCH ×3 (03:08→20:00)
[2020-12-15 04:04] LABS: BASOPHILS % (AUTO) 0.1 % (0.0-5.0); EOSINOPHILS % (AUTO) 0.1 % (0.0-8.0); LYMPHOCYTES % (AUTO) 6.1 % (21.0-51.0); MEAN CORPUSCULAR HEMOGLOBIN 30.2 pg (27.0-33.0); MEAN CORPUSCULAR HGB CONC 32.1 g/dL (32.0-36.0); MONOCYTES % (AUTO) 5.4 % (3.0-13.0); NEUTROPHILS % (AUTO) 87.8 % (40.0-77.0); NUCLEATED RED BLOOD CELLS 0.3 % (0.0-0.19); PLATELET COUNT (AUTO) 71 K/uL (130-400); RED BLOOD CELL COUNT(AUTO) 3.51 MIL/uL (4.50-6.20); RED CELL DISTRIBUTION WIDTH 16.7 % (11.0-15.5); WHITE BLOOD COUNT (AUTO) 10.3 K/uL (4.8-10.8)
[2020-12-15 04:21] LABS: CREATININE 1.2 mg/dL (0.5-1.5); POTASSIUM 3.2 mmol/L (3.5-5.1)
[2020-12-15] MEDS: IPRATROPIUM 0.5 MG/2.5 ML INH IH SCH ×3 (07:23→18:25)
[2020-12-15] MEDS: BALSAM PERU/CASTOR OIL 60 GM TUBE TP SCH (09:00)
[2020-12-15] MEDS: ASPIRIN 81MG CHEW TAB PO SCH (10:29)
[2020-12-15] MEDS: APIXABAN 2.5 MG TABLET PO SCH (10:29)
[2020-12-15] MEDS: MULTIVITAMIN TABLET PO SCH (10:30)
[2020-12-15] MEDS: SODIUM BICARBONATE 650 MG TAB PO SCH ×2 (10:30→21:00)
[2020-12-15] MEDS: PANTOPRAZOLE 40 MG TAB DR PO SCH (10:30)
[2020-12-15] MEDS: ZOSYN 3.375GM+NS 50ML 50 ML IV SCH ×2 (10:36→21:16)
[2020-12-15] MEDS ORDERED: FENTANYL CITRATE PF 50 MCG/1 ML 2ML VIAL ONE (10:44)
[2020-12-15] MEDS: POTASSIUM CHLORIDE 10% ELIXIR 20 MEQ/15 ML UDCUP PO PRN (12:06)
[2020-12-15] MEDS ORDERED: METOPROLOL TARTRATE 50 MG TAB PO SCH (14:00)
[2020-12-15] MEDS: METOPROLOL TARTRATE 1 MG/ML 5ML VIAL IV SCH ×2 (15:35→21:16)
[2020-12-15] MEDS: ENOXAPARIN SODIUM 80 MG/0.8 ML SQ SCH (21:15)
[2020-12-15] MEDS: POTASSIUM CHLORIDE 20MEQ/100ML 100 ML IV PRN ×2 (21:17→23:08)
[2020-12-16] VITALS (12 sets, daily range): BP systolic 85–136; BP diastolic 50–88
[2020-12-16] MEDS: IPRATROPIUM 0.5 MG/2.5 ML INH IH SCH ×4 (00:03→18:24)
[2020-12-16] MEDS: DEXTROSE 5%-WATER 1,000 ML IV SCH ×3 (01:51→20:49)
[2020-12-16] MEDS: METOPROLOL TARTRATE 1 MG/ML 5ML VIAL IV SCH ×5 (03:05→22:30)
[2020-12-16 04:07] LABS: POTASSIUM 3.5 mmol/L (3.5-5.1)
[2020-12-16] MEDS: POTASSIUM CHLORIDE 20MEQ/100ML 100 ML IV PRN (04:41)
[2020-12-16] MEDS: BALSAM PERU/CASTOR OIL 60 GM TUBE TP SCH (07:48)
[2020-12-16] MEDS: ZOSYN 3.375GM+NS 50ML 50 ML IV SCH ×2 (08:20→20:49)
[2020-12-16] MEDS: ENOXAPARIN SODIUM 80 MG/0.8 ML SQ SCH (08:22)
[2020-12-16] MEDS: SODIUM BICARBONATE 650 MG TAB PO SCH ×2 (10:55→20:49)
[2020-12-16] MEDS: PANTOPRAZOLE 40 MG TAB DR PO SCH (10:55)
[2020-12-16] MEDS: MULTIVITAMIN TABLET PO SCH (10:55)
[2020-12-16] MEDS: ASPIRIN 81MG CHEW TAB PO SCH (10:55)
[2020-12-17] VITALS (24 sets, daily range): BP systolic 93–132; BP diastolic 44–93
[2020-12-17] MEDS: IPRATROPIUM 0.5 MG/2.5 ML INH IH SCH ×4 (00:18→18:29)
[2020-12-17] MEDS: METOPROLOL TARTRATE 1 MG/ML 5ML VIAL IV SCH ×3 (02:14→19:16)
[2020-12-17 03:41] LABS: HEMATOCRIT 34.7 % (42-54); MEAN CORPUSCULAR HEMOGLOBIN 30.3 pg (27.0-33.0); MEAN CORPUSCULAR HGB CONC 32.3 g/dL (32.0-36.0); MEAN CORPUSCULAR VOLUME 93.8 fL (79-99); PLATELET COUNT (AUTO) 114 K/uL (130-400); RED CELL DISTRIBUTION WIDTH 17.8 % (11.0-15.5); WHITE BLOOD COUNT (AUTO) 10.1 K/uL (4.8-10.8)
[2020-12-17 03:44] LABS: MAGNESIUM 1.6 mg/dL (1.80-2.40); POTASSIUM 3.4 mmol/L (3.5-5.1)
[2020-12-17] MEDS: POTASSIUM CHLORIDE 20MEQ/100ML 100 ML IV PRN (04:00)
[2020-12-17] MEDS: MAGNESIUM 2GM PREMIX 50ML 50 ML IV PRN ×2 (04:00→13:32)
[2020-12-17 04:22] LABS: BASOPHILS % (AUTO) 0.1 % (0.0-5.0); EOSINOPHILS % (AUTO) 4.2 % (0.0-8.0); LYMPHOCYTES % (AUTO) 12.9 % (21.0-51.0); NEUTROPHILS % (AUTO) 73.4 % (40.0-77.0)
[2020-12-17 04:26] LABS: ABG HCO3 24.1 mmol/L (21.0-28.0); ABG OXYGEN SATURATION 96.7 % (95.0-99.0); ABG PCO2 30 mmHg (35-48)
[2020-12-17 04:30] LABS: ALBUMIN 1.5 g/dL (3.5-5.0); BILIRUBIN,TOTAL 1.7 mg/dL (0.2-1.0); TOTAL PROTEIN, SERUM 4.8 g/dL (6.0-8.3)
[2020-12-17 04:37] LABS: B-TYPE NATRIURETIC PEPTIDE 1630 pg/mL (0-100)
[2020-12-17] MEDS ORDERED: LORAZEPAM 2 MG/ML 1 ML VIAL IVP STA (04:54)
[2020-12-17] MEDS: PANTOPRAZOLE 40 MG TAB DR PO SCH (08:09)
[2020-12-17] MEDS: MULTIVITAMIN TABLET PO SCH (08:10)
[2020-12-17] MEDS: ASPIRIN 81MG CHEW TAB PO SCH (08:10)
[2020-12-17] MEDS: DEXTROSE 5%-WATER 1,000 ML IV SCH ×2 (08:11→17:30)
[2020-12-17] MEDS: SODIUM BICARBONATE 650 MG TAB PO SCH ×2 (08:11→21:00)
[2020-12-17] MEDS: ZOSYN 3.375GM+NS 50ML 50 ML IV SCH ×2 (08:11→21:13)
[2020-12-17] MEDS ORDERED: METOPROLOL TARTRATE 50 MG TAB PO SCH (09:00)
[2020-12-17] MEDS: BALSAM PERU/CASTOR OIL 60 GM TUBE TP SCH (09:29)
[2020-12-17 10:24] LABS: CREATININE 0.9 mg/dL (0.5-1.5); POTASSIUM 4.1 mmol/L (3.5-5.1)
[2020-12-18] VITALS (20 sets, daily range): BP systolic 93–136; BP diastolic 54–86
[2020-12-18] MEDS: IPRATROPIUM 0.5 MG/2.5 ML INH IH SCH ×5 (00:14→18:39)
[2020-12-18] MEDS: METOPROLOL TARTRATE 1 MG/ML 5ML VIAL IV SCH ×4 (00:22→18:00)
[2020-12-18] MEDS: DEXTROSE 5%-WATER 1,000 ML IV SCH ×3 (03:30→20:21)
[2020-12-18 04:03] LABS: BASOPHILS % (AUTO) 0.1 % (0.0-5.0); EOSINOPHILS % (AUTO) 3.4 % (0.0-8.0); HEMATOCRIT 32.3 % (42-54); LYMPHOCYTES % (AUTO) 12.4 % (21.0-51.0); MEAN CORPUSCULAR HEMOGLOBIN 30.9 pg (27.0-33.0); MEAN CORPUSCULAR HGB CONC 32.5 g/dL (32.0-36.0); MONOCYTES % (AUTO) 10.2 % (3.0-13.0); NEUTROPHILS % (AUTO) 73.2 % (40.0-77.0); PLATELET COUNT (AUTO) 124 K/uL (130-400); WHITE BLOOD COUNT (AUTO) 8.8 K/uL (4.8-10.8)
[2020-12-18 04:17] LABS: ALBUMIN 1.5 g/dL (3.5-5.0); BILIRUBIN,TOTAL 2.3 mg/dL (0.2-1.0); CREATININE 0.9 mg/dL (0.5-1.5); POTASSIUM 3.3 mmol/L (3.5-5.1)
[2020-12-18 04:19] LABS: ABG BASE EXCESS 1.7 mmol/L (-2.0-3.0); ABG HCO3 24.8 mmol/L (21.0-28.0); ABG OXYGEN SATURATION 95.1 % (95.0-99.0); ABG PCO2 35 mmHg (35-48)
[2020-12-18] MEDS: POTASSIUM CHLORIDE 20MEQ/100ML 100 ML IV PRN ×2 (06:38→08:47)
[2020-12-18] MEDS: ZOSYN 3.375GM+NS 50ML 50 ML IV SCH ×2 (08:47→20:01)
[2020-12-18] MEDS: PANTOPRAZOLE 40 MG TAB DR PO SCH (08:48)
[2020-12-18] MEDS: MULTIVITAMIN TABLET PO SCH (08:48)
[2020-12-18] MEDS: ENOXAPARIN SODIUM 80 MG/0.8 ML SQ SCH ×2 (08:48→20:02)
[2020-12-18] MEDS: ASPIRIN 81MG CHEW TAB PO SCH (08:48)
[2020-12-18] MEDS: SODIUM BICARBONATE 650 MG TAB PO SCH ×2 (08:48→20:02)
[2020-12-18] MEDS: BALSAM PERU/CASTOR OIL 60 GM TUBE TP SCH (08:49)
[2020-12-19] VITALS (13 sets, daily range): BP systolic 85–137; BP diastolic 50–75
[2020-12-19] MEDS: METOPROLOL TARTRATE 1 MG/ML 5ML VIAL IV SCH ×5 (00:20→23:25)
[2020-12-19] MEDS: IPRATROPIUM 0.5 MG/2.5 ML INH IH SCH ×5 (00:33→23:22)
[2020-12-19] MEDS ORDERED: LORAZEPAM 2 MG/ML 1 ML VIAL IVP SCH (08:45)
[2020-12-19] MEDS: MULTIVITAMIN TABLET PO SCH (09:12)
[2020-12-19] MEDS: PANTOPRAZOLE 40 MG TAB DR PO SCH (09:12)
[2020-12-19] MEDS: ZOSYN 3.375GM+NS 50ML 50 ML IV SCH ×2 (09:12→20:09)
[2020-12-19] MEDS: ENOXAPARIN SODIUM 80 MG/0.8 ML SQ SCH ×2 (09:13→20:10)
[2020-12-19] MEDS: ASPIRIN 81MG CHEW TAB PO SCH (09:13)
[2020-12-19] MEDS: BALSAM PERU/CASTOR OIL 60 GM TUBE TP SCH (09:13)
[2020-12-19] MEDS: SODIUM BICARBONATE 650 MG TAB PO SCH ×2 (09:13→20:10)
[2020-12-19] MEDS: DEXTROSE 5%-WATER 1,000 ML IV SCH ×2 (09:30→18:29)
[2020-12-20] VITALS (11 sets, daily range): BP systolic 100–138; BP diastolic 67–89
[2020-12-20 04:27] LABS: MEAN CORPUSCULAR HEMOGLOBIN 30.1 pg (27.0-33.0); MEAN CORPUSCULAR VOLUME 100.3 fL (79-99); RED BLOOD CELL COUNT(AUTO) 3.69 MIL/uL (4.50-6.20); RED CELL DISTRIBUTION WIDTH 18.4 % (11.0-15.5); WHITE BLOOD COUNT (AUTO) 9.1 K/uL (4.8-10.8)
[2020-12-20 04:39] LABS: CREATININE 0.9 mg/dL (0.5-1.5); MAGNESIUM 1.8 mg/dL (1.80-2.40)
[2020-12-20] MEDS: IPRATROPIUM 0.5 MG/2.5 ML INH IH SCH ×4 (05:09→23:32)
[2020-12-20] MEDS: DEXTROSE 5%-WATER 1,000 ML IV SCH ×2 (05:30→14:02)
[2020-12-20] MEDS: METOPROLOL TARTRATE 1 MG/ML 5ML VIAL IV SCH ×3 (06:18→17:28)
[2020-12-20] MEDS: ZOSYN 3.375GM+NS 50ML 50 ML IV SCH ×2 (08:07→20:47)
[2020-12-20] MEDS: PANTOPRAZOLE 40 MG TAB DR PO SCH (08:08)
[2020-12-20] MEDS: SODIUM BICARBONATE 650 MG TAB PO SCH ×2 (08:08→20:48)
[2020-12-20] MEDS: ASPIRIN 81MG CHEW TAB PO SCH (08:08)
[2020-12-20] MEDS: MULTIVITAMIN TABLET PO SCH (08:08)
[2020-12-20] MEDS: ENOXAPARIN SODIUM 80 MG/0.8 ML SQ SCH ×2 (08:09→20:48)
[2020-12-20] MEDS: BALSAM PERU/CASTOR OIL 60 GM TUBE TP SCH (08:09)
[2020-12-20] MEDS: METOPROLOL TARTRATE 1 MG/ML 5ML VIAL IV PRN (20:52)
[2020-12-21] VITALS: BP 120/71
[2020-12-21] MEDS: METOPROLOL TARTRATE 1 MG/ML 5ML VIAL IV SCH (00:28)
[2020-12-21] MEDS: DEXTROSE 5%-WATER 1,000 ML IV SCH (00:29)
[2020-12-21 04:00] VITALS: BP 121/76
[2020-12-21] MEDS: IPRATROPIUM 0.5 MG/2.5 ML INH IH SCH (06:55)
[2020-12-21] MEDS ORDERED: MORPHINE 2 MG SYG IVP PRN (09:45)
[2020-12-21] MEDS ORDERED: MORPHINE 4 MG SYG IV PRN (09:45)
[2020-12-21] MEDS ORDERED: LORAZEPAM 2 MG/ML 1 ML VIAL IM PRN (09:45)
[2020-12-21] MEDS: ASPIRIN 81MG CHEW TAB PO SCH (10:07)
[2020-12-21] MEDS: MULTIVITAMIN TABLET PO SCH (10:07)
[2020-12-21] MEDS: PANTOPRAZOLE 40 MG TAB DR PO SCH (10:07)
[2020-12-21] MEDS: BALSAM PERU/CASTOR OIL 60 GM TUBE TP SCH (10:08)
[2020-12-21] MEDS ORDERED: APIXABAN 5 MG TABLET PO SCH (21:00)
[2020-12-21] MEDS ORDERED: METOPROLOL TARTRATE 25 MG TAB PO SCH (21:00)
== END 2020-12-21 13:24 | disposition hospice, home (50) | DRG 871 ==
LOC: EDH 13:12 → EDHIP 16:20 → 2CH 21:00 → 2DH 12-14 18:02
PROVIDERS: ADMIT Internal Medicine Pulmonary Disease; ATTEND Internal Medicine Pulmonary Disease
PROC: 5A09357 Assistance with Respiratory Ventilation, Less than 24 Consecutive Hours, Continuous Positive Airway Pressure (ICD-10-PCS; principal; 2020-12-06)
PROC: 5A09357 Assistance with Respiratory Ventilation, Less than 24 Consecutive Hours, Continuous Positive Airway Pressure (ICD-10-PCS; 2020-12-07)
PROC: 5A09357 Assistance with Respiratory Ventilation, Less than 24 Consecutive Hours, Continuous Positive Airway Pressure (ICD-10-PCS; 2020-12-08)
PROC: 5A09357 Assistance with Respiratory Ventilation, Less than 24 Consecutive Hours, Continuous Positive Airway Pressure (ICD-10-PCS; 2020-12-09)
PROC: 05HB33Z Insertion of Infusion Device into Right Basilic Vein, Percutaneous Approach (ICD-10-PCS; 2020-12-09)
PROC: 5A09357 Assistance with Respiratory Ventilation, Less than 24 Consecutive Hours, Continuous Positive Airway Pressure (ICD-10-PCS; 2020-12-10)
PROC: 5A09357 Assistance with Respiratory Ventilation, Less than 24 Consecutive Hours, Continuous Positive Airway Pressure (ICD-10-PCS; 2020-12-11)
PROC: 5A09357 Assistance with Respiratory Ventilation, Less than 24 Consecutive Hours, Continuous Positive Airway Pressure (ICD-10-PCS; 2020-12-12)
PROC: 5A09357 Assistance with Respiratory Ventilation, Less than 24 Consecutive Hours, Continuous Positive Airway Pressure (ICD-10-PCS; 2020-12-13)
DX: A41.9 Sepsis, unspecified organism (principal); E43 Unspecified severe protein-calorie malnutrition; G93.41 Metabolic encephalopathy; I50.43 Acute on chronic combined systolic (congestive) and diastolic (congestive) heart failure; J18.9 Pneumonia, unspecified organism; M62.82 Rhabdomyolysis; N17.9 Acute kidney failure, unspecified; E87.2 Acidosis; F10.239 Alcohol dependence with withdrawal, unspecified; I47.1 Supraventricular tachycardia; I47.2 Ventricular tachycardia; K76.6 Portal hypertension; N30.00 Acute cystitis without hematuria; I74.09 Other arterial embolism and thrombosis of abdominal aorta; R65.20 Severe sepsis without septic shock; E87.6 Hypokalemia; E86.0 Dehydration; I73.9 Peripheral vascular disease, unspecified; I48.0 Paroxysmal atrial fibrillation; D64.9 Anemia, unspecified; D69.6 Thrombocytopenia, unspecified; L89.329 Pressure ulcer of left buttock, unspecified stage; L89.319 Pressure ulcer of right buttock, unspecified stage; K70.31 Alcoholic cirrhosis of liver with ascites; L89.152 Pressure ulcer of sacral region, stage 2; F41.9 Anxiety disorder, unspecified; M10.9 Gout, unspecified; R13.10 Dysphagia, unspecified; Z20.822 Contact with and (suspected) exposure to COVID-19; E86.9 Volume depletion, unspecified; Z51.5 Encounter for palliative care; Z66 Do not resuscitate; Z68.24 Body mass index [BMI] 24.0-24.9, adult; Z74.01 Bed confinement status; Z79.01 Long term (current) use of anticoagulants; Z86.73 Personal history of transient ischemic attack (TIA), and cerebral infarction without residual deficits
CPT/HCPCS: 36415; 36600; 70450; 71045; 74176; 74230; 76700; 80048; 80053; 80076; 80202; 80305; 81001; 82040; 82140; 82435; 82550; 82803; 82947; 82948; 83605; 83615; 83690; 83735; 83880; 84100; 84132; 84145; 84295; 84484; 85014; 85018; 85025; 85027; 85378; 85610; 85730; 86140; 87040; 87088; 87426; 92526; 92610; 92611; 93005; 93306; 93926; 93970; 93971; 94640; 94660; 94664; 94667; 94668; 97039; 99291; C1751; C1894; G0378; G0481; J0282; J1644; J1650; J1940; J2060; J2370; J2543; J3010; J3360; J3370; J3411; J3475; J3480; J3490; J7030; J7050; J7060; J7070; J7120; P9046; P9047; U0003

== ENCOUNTER 2020-12-21 13:25 | Inpatient (IN) | payer OTHER ==
[~2020-12-21 13:25] MED LIST: CLOT30SO2 TP; ERGO500093 PO; LEVO500T90 PO; LISI1TAB53 PO; LORA10TA7 PO; MEGE400O5 PO
[2020-12-21] MEDS ORDERED: GLYCOPYRROLATE 1 MG/5 ML SYRINGE IV PRN (17:15)
[2020-12-21] MEDS ORDERED: LORAZEPAM 2 MG/ML 1 ML VIAL IM PRN (17:15)
[2020-12-21] MEDS: MORPHINE 2 MG SYG IVP PRN (18:36)
[2020-12-21 20:16] VITALS: BP 115/75
[2020-12-22] MEDS: MORPHINE 2 MG SYG IVP PRN (03:46)
[2020-12-22 07:50] VITALS: BP 83/56
== END 2020-12-22 08:00 | disposition expired | DRG 871 ==
LOC: 2DH 13:25 → 3BH 15:21
PROVIDERS: ADMIT Internal Medicine Pulmonary Disease; ATTEND Internal Medicine Pulmonary Disease
DX: A41.9 Sepsis, unspecified organism (principal); R65.21 Severe sepsis with septic shock; F10.130 Alcohol abuse with withdrawal, uncomplicated; Z51.5 Encounter for palliative care; I48.91 Unspecified atrial fibrillation; K72.90 Hepatic failure, unspecified without coma; Y90.9 Presence of alcohol in blood, level not specified
CPT/HCPCS: G0378; J3490